=== PATIENT | female | born 1960 | race Caucasian/White ===

== ENCOUNTER 2017-03-31 10:51 | Emergency (ER) | payer BC ==
[~2017-03-31] VITALS: Ht 162.6 cm; Wt 65.0 kg
[2017-03-31 11:02] VITALS: BP 123/76
== END 2017-03-31 13:01 | disposition home or self-care (01) ==
LOC: ED 12:55
DX: S93.491A Sprain of other ligament of right ankle, initial encounter (principal); X50.1XXA Overexertion from prolonged static or awkward postures, initial encounter; Y93.89 Activity, other specified; Y92.410 Unspecified street and highway as the place of occurrence of the external cause; Y99.9 Unspecified external cause status
CPT/HCPCS: 99284